=== PATIENT | female | born 1980 | race Caucasian/White ===

== ENCOUNTER 2018-11-18 18:03 | Emergency (ER) | payer MEDICAID ==
[~2018-11-18] VITALS: Ht 165.1 cm; Wt 92.7 kg
[~2018-11-18 18:03] MED LIST: PRENATAL VITAMINS
[2018-11-18 18:05] VITALS: BP 128/75
[2018-11-18] MEDS ORDERED: KETOROLAC 60 MG/2 ML VIAL IM ONE (18:50)
[2018-11-18 19:26] VITALS: BP 121/72
== END 2018-11-18 19:26 | disposition home or self-care (01) ==
LOC: MED 18:03
DX: M54.16 Radiculopathy, lumbar region (principal); Z79.899 Other long term (current) drug therapy
CPT/HCPCS: 81002; 81025; 96372; 99283; J1885

== ENCOUNTER 2020-05-30 18:17 | Emergency (ER) | payer MEDICAID, SELFPAY ==
[~2020-05-30] VITALS: Ht 167.6 cm; Wt 90.7 kg
[2020-05-30 18:52] VITALS: BP 141/90
[2020-05-30] MEDS ORDERED: ACETAMINOPHEN EXTRA STRENGTH 500 MG TAB PO ONE (18:55)
[2020-05-30] MEDS ORDERED: ACETAMINOPHEN 325 MG TAB PO ONE (18:55)
== END 2020-05-30 19:36 | disposition home or self-care (01) ==
LOC: MED 18:17
DX: J02.9 Acute pharyngitis, unspecified (principal); Z20.828 Contact with and (suspected) exposure to other viral communicable diseases; Z79.899 Other long term (current) drug therapy
CPT/HCPCS: 99283; U0003

== ENCOUNTER 2021-04-24 20:54 | Emergency (ER) | payer MEDICAID, SELFPAY ==
[~2021-04-24] VITALS: Ht 165.1 cm; Wt 93.4 kg
[2021-04-24 21:19] VITALS: BP 150/106
--- NOTE | 2021-04-24 21:59 | NUR ---
PT AMBULATORY TO BED
[2021-04-24] MEDS ORDERED: KETOROLAC 60 MG/2 ML VIAL IM ONE (22:05)
--- NOTE | 2021-04-24 22:20 | NUR ---
See patient assessment for more information. Patient lying in bed locked in lowest, x1 side rail up. Breathing even and unlabored. NAD noted, will continue to monitor.
[2021-04-24] MEDS ORDERED: ACETAMINOPHEN EXTRA STRENGTH 500 MG TAB PO ONE (22:25)
--- NOTE | 2021-04-24 22:45 | NUR ---
Dr. Woods examining patient.
[2021-04-24] MEDS ORDERED: ONDA8TAB87 PO (23:10)
[2021-04-24] MEDS ORDERED: NITR100C7 PO (23:10)
[2021-04-24 23:30] VITALS: BP 130/76
--- NOTE | 2021-04-24 23:30 | NUR ---
Patient discharged with v/s stable. Written and verbal after care instructions given and explained. Patient alert, oriented and verbalized understanding of instructions. Ambulatory with steady gait. All questions addressed prior to discharge. ID band removed. Patient advised to follow up with PMD. Rx of Macrobid, zofran given. Patient educated on indication of medication including possible reaction and side effects. Opportunity to ask questions provided and answered.
--- NOTE | 2021-04-25 02:20 | NUR ---
Note nilda in ED - 04/25/21 at 0420 by RIOK See patient assessment for more information. Patient lying in bed locked in lowest, x1 side rail up. Breathing even and unlabored. NAD noted, will continue to monitor.
== END 2021-04-24 23:20 | disposition home or self-care (01) ==
LOC: MED 20:54
DX: O23.41 Unspecified infection of urinary tract in pregnancy, first trimester (principal); R51.9 Headache, unspecified; Z3A.11 11 weeks gestation of pregnancy
CPT/HCPCS: 81002; 81025; 99283; J1885

== ENCOUNTER 2021-05-24 23:08 | Emergency (ER) | payer MEDICAID, SELFPAY ==
[~2021-05-24] VITALS: Ht 165.1 cm; Wt 91.6 kg
[~2021-05-24 23:08] MED LIST changes: +NITR100C7 PO; +ONDA8TAB87 PO
[2021-05-24 23:18] VITALS: BP 156/98
--- NOTE | 2021-05-24 23:22 | NUR ---
ERMD HAD MEDICAL EVALUATION FOR PATIENT IN TRIAGE.
--- NOTE | 2021-05-24 23:32 | NUR ---
PATIENT HAVING BLOOD DRAWN IN [facility].
[2021-05-24 23:42] LABS: BASOPHILS % (AUTO) 0.2 % (0.0-2.0); EOSINOPHILS # (AUTO) 0.2 K/uL (0-0.4); EOSINOPHILS % (AUTO) 2.1 % (0.0-4.0); HEMATOCRIT 40.2 % (36-48); HEMOGLOBIN 13.4 g/dL (12.0-16.0); LYMPHOCYTES # (AUTO) 2.8 K/uL (2.5-16.5); LYMPHOCYTES % (AUTO) 31.5 % (20.5-51.1); MEAN CORPUSCULAR HEMOGLOBIN 30 pg (27-31); MEAN CORPUSCULAR HGB CONC 33 g/dL (33-37); MEAN CORPUSCULAR VOLUME 88.9 fL (80-94); MONOCYTES # (AUTO) 0.7 K/uL (0.8-1.0); MONOCYTES % (AUTO) 7.6 % (1.7-9.3); NEUTROPHILS # (AUTO) 5.3 K/uL (1.8-7.7); NEUTROPHILS % (AUTO) 58.6 % (42.2-75.2); PLATELET COUNT (AUTO) 209 K/uL (140-450); RED BLOOD CELL COUNT(AUTO) 4.52 MIL/uL (4.20-5.40); RED CELL DISTRIBUTION WIDTH 13.9 % (11.6-13.7)
--- NOTE | 2021-05-24 23:53 | NUR ---
TO ER BED 2
[2021-05-24 23:54] LABS: APPEARANCE,URINE SL CLOUDY (CLEAR); BILIRUBIN,URINE NEGATIVE (NEGATIVE); BLOOD, URINE 3+ (NEGATIVE); COLOR,URINE RED (YELLOW); LEUKOCYTE ESTERASE ,URINE NEGATIVE (NEGATIVE); NITRITE, URINE NEGATIVE (NEGATIVE); PH,URINE 6.5 (5.0-9.0); UGLUCOSE NEGATIVE (NEGATIVE)
[2021-05-24 23:55] LABS: RBC,URINE TOO NUMEROUS TO COUN /HPF (0-5); WBC,URINE 0-5 /HPF (0-5)
[2021-05-25 00:07] LABS: PROTHROMBIN TIME 10.3 secs (10.8-13.4)
[2021-05-25 00:08] LABS: ALBUMIN 4.2 g/dL (3.4-5.0); ANION GAP 13.1 (8-16); CARBON DIOXIDE 26.6 mmol/L (21-32); CREATININE 0.7 mg/dL (0.6-1.3); POTASSIUM 3.7 mmol/L (3.5-5.1); TOTAL BILIRUBIN 0.4 mg/dL (0.0-1.0)
--- NOTE | 2021-05-25 00:15 | NUR ---
PT. IS A 40 Y/O FEMALE THAT CAME INTO ED WITH C/O VAGINAL BLEEDING. PT. STATES SHE IS BUT DOES NOT KNOW HOW FAR ALONG SHE IS. PT. STATES THAT THIS MORNING SHE WAS "BLEEDING CLOTS." DENIES N/V/D/FEVER. SKIN IS PINK/WARM/DRY; AAOX4 WITH EVEN AND STEADY GAIT; HR EVEN AND REGULAR; PT DENIES ANY FEVER, CP, SOB, OR COUGH AT THIS TIME; VSS; PATIENT POSITIONED FOR COMFORT; HOB ELEVATED; BEDRAILS UP X2; BED DOWN. ER MD MADE AWARE OF PT STATUS. PMH: DENIES ALLERGIES: NKA
--- NOTE | 2021-05-25 02:35 | NUR ---
PELVIC EXAM COMPLETED BY GRETA FRANZ. ACCOMPANIED BY PATRICK RN (MYSELF) AT BEDSIDE.
[2021-05-25] MEDS ORDERED: ACETAMINOPHEN EXTRA STRENGTH 500 MG TAB PO ONE (02:55)
[2021-05-25] MEDS ORDERED: ACET-10509 PO (02:55)
[2021-05-25 03:05] VITALS: BP 156/98
--- NOTE | 2021-05-25 03:05 | NUR ---
Patient discharged with v/s stable. Written and verbal after care instructions given and explained. Patient alert, oriented and verbalized understanding of instructions. Ambulatory with steady gait. All questions addressed prior to discharge. ID band removed. Patient advised to follow up with PMD. Rx of ACETAMINOPHEN TAB given. Patient educated on indication of medication including possible reaction and side effects. Opportunity to ask questions provided and answered.
== END 2021-05-25 03:05 | disposition home or self-care (01) ==
LOC: MED 23:08
DX: O03.4 Incomplete spontaneous abortion without complication (principal); Z79.899 Other long term (current) drug therapy; Z3A.14 14 weeks gestation of pregnancy
CPT/HCPCS: 36415; 76805; 80053; 81001; 84702; 85025; 85610; 85730; 99284

== ENCOUNTER 2022-02-10 12:44 | Emergency (ER) | payer MEDICAID ==
[~2022-02-10] VITALS: Ht 165.1 cm; Wt 90.0 kg
[~2022-02-10 12:44] MED LIST changes: +ACET-10509 PO
[2022-02-10 13:04] VITALS: BP 133/74
--- NOTE | 2022-02-10 14:44 | NUR ---
PT AMBULATED TO ER BED 6
--- NOTE | 2022-02-10 14:48 | NUR ---
US AT BEDSIDE
--- NOTE | 2022-02-10 15:05 | NUR ---
41/F PRESENTS TO ED WITH C/O LOWER ABDOMINAL CRAMPING AND VAGINAL BLEEDING SINCE THIS MORNING. PATIENT STATES SHE IS CURRENTLY 14 WEEKS , PATIENT IS A2. PATIENT DENIES TAKING ANYTHING FOR PAIN, REPORTS 6/10 CRAMPING LIKE PAIN. PATIENT DENIES CP, SOB, N/V/D OR FEVERS.
[2022-02-10 15:23] LABS: BASOPHILS % (AUTO) 0.3 % (0.0-2.0); EOSINOPHILS # (AUTO) 0.1 K/uL (0-0.4); EOSINOPHILS % (AUTO) 1.1 % (0.0-4.0); HEMATOCRIT 38.4 % (36-48); HEMOGLOBIN 12.9 g/dL (12.0-16.0); LYMPHOCYTES # (AUTO) 2.1 K/uL (2.5-16.5); MEAN CORPUSCULAR HEMOGLOBIN 29 pg (27-31); MEAN CORPUSCULAR HGB CONC 34 g/dL (33-37); MONOCYTES # (AUTO) 0.6 K/uL (0.8-1.0); MONOCYTES % (AUTO) 6.7 % (1.7-9.3); NEUTROPHILS # (AUTO) 6.6 K/uL (1.8-7.7); NEUTROPHILS % (AUTO) 69.9 % (42.2-75.2); PLATELET COUNT (AUTO) 162 K/uL (140-450); RED BLOOD CELL COUNT(AUTO) 4.42 MIL/uL (4.20-5.40); RED CELL DISTRIBUTION WIDTH 13.6 % (11.6-13.7); WHITE BLOOD COUNT (AUTO) 9.4 K/uL (4.8-10.8)
[2022-02-10 17:17] LABS: APPEARANCE,URINE CLEAR (CLEAR); BILIRUBIN,URINE NEGATIVE (NEGATIVE); BLOOD, URINE TRACE-I (NEGATIVE); COLOR,URINE YELLOW (YELLOW); LEUKOCYTE ESTERASE ,URINE 2+ (NEGATIVE); NITRITE, URINE NEGATIVE (NEGATIVE); PH,URINE 7.5 (5.0-9.0); UGLUCOSE NEGATIVE (NEGATIVE)
[2022-02-10] MEDS ORDERED: CEPH250C16 PO (17:24)
[2022-02-10 17:30] VITALS: BP 123/79
--- NOTE | 2022-02-10 17:35 | NUR ---
Patient discharged with v/s stable. Written and verbal after care instructions given and explained for UTI. Patient alert, oriented and verbalized understanding of instructions. Ambulatory with steady gait. All questions addressed prior to discharge. ID band removed. Patient advised to follow up with PMD. Rx of Keflex given. Patient educated on indication of medication including possible reaction and side effects. Opportunity to ask questions provided and answered.
== END 2022-02-10 17:35 | disposition home or self-care (01) ==
LOC: MED 12:44
DX: O23.41 Unspecified infection of urinary tract in pregnancy, first trimester (principal); O20.8 Other hemorrhage in early pregnancy; Z3A.14 14 weeks gestation of pregnancy; Z79.899 Other long term (current) drug therapy
CPT/HCPCS: 36415; 76805; 81001; 81025; 83880; 84702; 85025; 86886; 86900; 86901; 87086; 99284; Q0092

== ENCOUNTER 2022-03-15 20:29 | Emergency (ER) | payer MEDICAID ==
[~2022-03-15] VITALS: Ht 165.1 cm; Wt 91.2 kg
[~2022-03-15 20:29] MED LIST changes: +CEPH250C16 PO
[2022-03-15 20:52] VITALS: BP 120/74
[2022-03-15] MEDS ORDERED: ACETAMINOPHEN EXTRA STRENGTH 500 MG TAB PO ONE (22:35)
[2022-03-15] MEDS ORDERED: METOCLOPRAMIDE 10 MG TAB PO ONE (22:35)
--- NOTE | 2022-03-15 23:02 | NUR ---
CALLED PT IN LOBBY AND OUTSIDE LOBBY. PT NOT PRESENT
[2022-03-15] MEDS ORDERED: ACET-10509 PO (23:16)
[2022-03-15] MEDS ORDERED: METO-486 PO (23:16)
--- NOTE | 2022-03-15 23:30 | NUR ---
CALLED PT IN LOBBY AND OUTSIDE LOBBY. PT NOT PRESENT
--- NOTE | 2022-03-16 00:14 | NUR ---
PATIENT ELOPED FROM FACILITY. DISCHARGE INSTRUCTIONS NOT GIVEN TO PATIENT. DR. NUNEZ NOTIFIED.
--- NOTE | 2022-03-16 00:14 | NUR ---
CALLED FOR PATIENT NO ANSWER AT THIS TIME
== END 2022-03-16 00:15 | disposition left against medical advice (07) ==
LOC: MED 20:29
DX: O99.352 Diseases of the nervous system complicating pregnancy, second trimester (principal); G43.909 Migraine, unspecified, not intractable, without status migrainosus; O24.419 Gestational diabetes mellitus in pregnancy, unspecified control; Z3A.21 21 weeks gestation of pregnancy
CPT/HCPCS: 99281; J8597

== ENCOUNTER 2023-04-17 16:49 | Emergency (ER) | payer MEDICAID ==
[~2023-04-17] VITALS: Ht 165.1 cm; Wt 99.8 kg
[~2023-04-17 16:49] MED LIST changes: +METO-486 PO
[2023-04-17 17:12] VITALS: BP 131/95
--- NOTE | 2023-04-17 17:15 | NUR ---
Patient ambulated to bed 4.
--- NOTE | 2023-04-17 17:18 | NUR ---
[employer]ARE[employer] DEVELOPER Crawford evaluating patient at bedside.
--- NOTE | 2023-04-17 17:40 | NUR ---
42 y/o female bib self with c/o migraine headache x 2 days. Per patient, pain has increased and she is having increased sensitivity to light and sound. Patient also reports dizziness. Medical History: Denies NKDA
[2023-04-17] MEDS ORDERED: diphenhydrAMINE 50 MG/ML VIAL IVP ONE (17:50)
[2023-04-17] MEDS ORDERED: NACL 0.9% 1,000 ML IV ONE (17:50)
[2023-04-17] MEDS ORDERED: METOCLOPRAMIDE 10 MG/2 ML INJ VIAL IVP ONE (17:50)
[2023-04-17 17:53] LABS: APPEARANCE,URINE CLEAR (CLEAR); COLOR,URINE YELLOW (YELLOW)
[2023-04-17 17:54] LABS: BILIRUBIN,URINE NEGATIVE (NEGATIVE); BLOOD, URINE NEGATIVE (NEGATIVE); LEUKOCYTE ESTERASE ,URINE TRACE (NEGATIVE); NITRITE, URINE NEGATIVE (NEGATIVE); UGLUCOSE NEGATIVE (NEGATIVE)
[2023-04-17 18:07] LABS: RBC,URINE 0-5 /HPF (0-5)
[2023-04-17] MEDS ORDERED: IBUP-2213 PO (19:16)
--- NOTE | 2023-04-17 19:35 | NUR ---
Patient discharged with v/s stable. Written and verbal after care instructions given and explained. Patient alert, oriented and verbalized understanding of instructions. Ambulatory with steady gait. All questions addressed prior to discharge. ID band removed. Patient advised to follow up with PMD. Rx of ibuprofen given. Opportunity to ask questions provided and answered.
[2023-04-17] MEDS ORDERED: CEPH-588 PO (20:03)
== END 2023-04-17 19:35 | disposition home or self-care (01) ==
LOC: MED 16:49
DX: G43.909 Migraine, unspecified, not intractable, without status migrainosus (principal); N39.0 Urinary tract infection, site not specified; R11.0 Nausea; R42 Dizziness and giddiness; Z79.899 Other long term (current) drug therapy
CPT/HCPCS: 81001; 81025; 87086; 96361; 96374; 96375; 99284; J1200; J2765; J7030

== ENCOUNTER 2023-09-05 18:34 | Emergency (ER) | payer MEDICAID ==
[~2023-09-05] VITALS: Ht 165.1 cm; Wt 98.0 kg
[~2023-09-05 18:34] MED LIST changes: +CEPH-588 PO; +IBUP-2213 PO
[2023-09-05 19:21] VITALS: BP 135/79; PULSE 70; RESP 20; TEMP 97.7; O2SAT 98
[2023-09-05] MEDS ORDERED: KETOROLAC 30 MG/ML VIAL IVP ONE (19:35)
[2023-09-05] MEDS ORDERED: ACETAMINOPHEN EXTRA STRENGTH 500 MG TAB PO ONE (19:35)
[2023-09-05] MEDS ORDERED: METOCLOPRAMIDE 10 MG/2 ML INJ VIAL IVP ONE (19:35)
[2023-09-05 20:06] LABS: BASOPHILS % (AUTO) 0.2 % (0.0-2.0); EOSINOPHILS # (AUTO) 0.1 K/uL (0-0.4); HEMATOCRIT 39.5 % (36-48); HEMOGLOBIN 13.1 g/dL (12.0-16.0); LYMPHOCYTES # (AUTO) 2.4 K/uL (2.5-16.5); LYMPHOCYTES % (AUTO) 25.2 % (20.5-51.1); MEAN CORPUSCULAR HEMOGLOBIN 27 pg (27-31); MEAN CORPUSCULAR HGB CONC 33 g/dL (33-37); MEAN CORPUSCULAR VOLUME 81.6 fL (80-94); MONOCYTES # (AUTO) 0.7 K/uL (0.8-1.0); MONOCYTES % (AUTO) 7.2 % (1.7-9.3); NEUTROPHILS # (AUTO) 6.4 K/uL (1.8-7.7); NEUTROPHILS % (AUTO) 66.4 % (42.2-75.2); PLATELET COUNT (AUTO) 277 K/uL (140-450); RED BLOOD CELL COUNT(AUTO) 4.84 MIL/uL (4.20-5.40); RED CELL DISTRIBUTION WIDTH 14.2 % (11.6-13.7); WHITE BLOOD COUNT (AUTO) 9.6 K/uL (4.8-10.8)
[2023-09-05 20:13] LABS: ANION GAP 11.3 (8-16); CALCIUM 8.8 mg/dL (8.5-10.1); CARBON DIOXIDE 29.9 mmol/L (21-32); CREATININE 0.8 mg/dL (0.6-1.3); POTASSIUM 4.2 mmol/L (3.5-5.1)
[2023-09-05] MEDS ORDERED: NACL 0.9% 1,000 ML IV ONE (20:15)
[2023-09-05] MEDS ORDERED: ACETAMINOPHEN EXTRA STRENGTH 500 MG TAB ONE (20:39)
[2023-09-05 21:44] VITALS: BP 135/79; PULSE 70; RESP 20; TEMP 97.7; O2SAT 98
== END 2023-09-05 21:44 | disposition home or self-care (01) ==
LOC: MED 18:34
DX: G43.909 Migraine, unspecified, not intractable, without status migrainosus (principal); Z79.1 Long term (current) use of non-steroidal anti-inflammatories (NSAID); Z79.2 Long term (current) use of antibiotics; Z79.899 Other long term (current) drug therapy
CPT/HCPCS: 36415; 70450; 80048; 81025; 85025; 96361; 96374; 96375; 99285; J1885; J2765; J7030